=== PATIENT | male | born 1950 ===

== ENCOUNTER 2018-06-17 10:18 | Emergency (ER) | payer MEDICARE ==
--- NOTE | 2018-06-17 12:41 | Emergency Department Report ---
ED Upper Extremity Inj HPI - General Chief Complaint: Extremity Injury, Upper Stated Complaint: FELL ON SHOULDER/IN FEB 2018 Time Seen by Provider: 06/17/18 12:33 Source: patient Mode of arrival: Ambulatory Limitations: No Limitations - History of Present Illness Initial Comments: Mr. Chadwick is a very pleasant 67-year-old male with history of hypertension who injured his right shoulder during a fall in February. He wass evaluated by physician. According to his reports x-rays "didn't show anything." He has had persistent pain despite pain and anti-inflammatory medications. He did not like the pain medication. He stated the pain medication made him high. He has used heat nad ice. He also used his 's TENS unit. Chiropractor did not provide any relief. Pain is mostly in the right shoulder. He fell onto a hard floor in February. Pain radiates to the elbow and hand. Denies neck pain. Denies weakness. MD Complaint: Injury to:: right, shoulder -: month(s) (3) Other Extremity Injury: Fingers: Right, Shoulder: Right Place: home Improves With: cold therapy, rest Worsens With: movement of extremity Context: fall, direct blow Associated Symptoms: denies other symptoms - Related Data Allergies Allergy/AdvReac Type Severity Reaction Status Date / Time No Known Allergies Allergy Unverified 06/17/18 10:19 ED Review of Systems ROS: Stated complaint: FELL ON SHOULDER/IN FEB 2018 Other details as noted in HPI Constitutional: denies: fever, malaise Respiratory: denies: cough Cardiovascular: denies: chest pain Neurological: denies: weakness, numbness, paresthesias ED Past Medical Hx - Past Medical History Previous Medical History?: Yes Hx Hypertension: Yes - Surgical History Past Surgical History?: Yes Additional Surgical History: Back surg. - Social History Smoking Status: Never Smoker Substance Use Type: None ED Physical Exam - General Limitations: No Limitations General appearance: alert, in no apparent distress - Head Head exam: Present: atraumatic, normocephalic - Eye Eye exam: Absent: scleral icterus, conjunctival injection - Neck Neck exam: Present: normal inspection, full ROM - Extremities Exam Extremities exam: Present: full ROM, tenderness, normal capillary refill - Expanded Upper Extremity Exam Right Shoulder Exam: Present: normal inspection, full ROM, tenderness. Absent: swelling, abrasion, laceration, ecchymosis, deformity, crepidus, dislocation, tenderness over AC joint Neurosensory exam: Present: radial nerve intact, ulnar nerve intact, median nerve intact Vascular: Present: normal capillary refill ED Course Vital Signs 06/17/18 10:29 Temperature 98 F Pulse Rate 89 Respiratory 20 Rate Blood Pressure 177/101 O2 Sat by Pulse 98 Oximetry ED Medical Decision Making - Medical Decision Making Mr. Chadwick presents with a right rotator cuff injury after fall in February. Referred to orthopedic surgeon. Recommended ice and [id number] nonsteroidal anti-inflammatory drugs. Critical care attestation.: If time is entered above; I have spent that time in minutes in the direct care of this critically ill patient, excluding procedure time. ED Disposition Clinical Impression: Right rotator cuff tear arthropathy Disposition: TO HOME OR SELFCARE Is pt being admited?: No Does the pt Need Aspirin: No Condition: Stable Instructions: Rotator Cuff Injury (ED) Referrals: KOKO NELSON MD [Staff Physician] - 3-5 Days
[2018-06-17 12:49] VITALS: BP 150/97
== END 2018-06-17 12:48 | disposition home or self-care (01) ==
LOC: ED 10:18
DX: S46.001A Unspecified injury of muscle(s) and tendon(s) of the rotator cuff of right shoulder, initial encounter (principal); I10 Essential (primary) hypertension; W17.89XA Other fall from one level to another, initial encounter; Y93.89 Activity, other specified; Y92.098 Other place in other non-institutional residence as the place of occurrence of the external cause; Y99.8 Other external cause status
CPT/HCPCS: 99282